=== PATIENT | female | born 1995 | race Caucasian/White ===

== ENCOUNTER 2020-02-29 00:01 | Inpatient (IN) ==
[2020-02-29] MEDS ORDERED: RINGER'S SOLUTION,LACTATED 1,000 ML IV ONE (00:12)
[2020-02-29] MEDS ORDERED: ONDANSETRON 4 MG TAB.RAPDIS PO PRN (00:12)
[2020-02-29 00:22] LABS: Hematocrit 36.5 % (37.0-47.0); Hemoglobin 12.1 gm/dL (12.5-16.0); Mean Cell Volume 89.7 fl (78-100); Mean Corpuscular Hemoglobin 29.7 pg (27-31); Mean Corpuscular Hgb Conc 33.2 g/dl (32-36); Mean Platelet Volume 10.8 fl (8-12.5); Neutrophil # 11.9 K/mm3 (1.3-6.0); Platelet Count 170 K/mm3 (150-450); Red Blood Count 4.07 M/mm3 (4.2-5.4); Red Cell Distribution Width 12.9 % (11.5-14.0); White Blood Count 15.8 K/mm3 (4.0-10.5)
[2020-02-29] MEDS ORDERED: PENICILLIN G POTASSIUM 5 MILLIONUNT in DEXTROSE 5 % IN WATER 100 ML IV ONE ×2 (00:30)
[2020-02-29 00:34] LABS: Albumin * 2.4 gm/dl (3.4-5.0); Anion Gap 13.6 mmol/L (6.8-13.8); BUN/Creatinine Ratio 12.7 (9.0-21.6); Bilirubin, Total 0.4 mg/dL (0.0-1.1); Ca. Corrected For Albumin 9.3 mg/dL (8.4-10.2); Calcium * 8.3 mg/dL (7.9-10.9); Carbon Dioxide 21.9 mmol/L (24-32.6); Potassium 3.5 mmol/L (3.4-4.6); Total Protein 6.5 gm/dL (6.2-8.2)
[2020-02-29] MEDS: MISOPROSTOL 100 MCG TABLET VG PRN (01:02)
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
[2020-02-29] MEDS: OXYTOCIN/DEXTROSE 5%-WATER 30 UNITS/500 ML BAG IV ONE (09:16)
[2020-02-29] MEDS: PENICILLIN G POTASSIUM 2.5 MILLIONUNT in DEXTROSE 5 % IN WATER 100 ML IV SCH ×4 (13:55→18:19)
--- NOTE | 2020-02-29 21:18 | PN ---
Progess Note - Interim Date: 02/29/20 Time: 21:17 Narrative: 02/29/20 21:17 Patient rating her contractions as mild. Denies headache, visual changes, or epigastric pain. Vital signs stable. Pitocin at 8 mu/min. FHT: 130 baseline, reassuring contractions q 2-3 min Cervix: 50/-2 Impression: Intrauterine at 37 weeks induction of labor for preeclampsia. GBS carrier-status post 4 doses of IV penicillin Plan: Continue present plan
[2020-03-01] MEDS: MISOPROSTOL 100 MCG TABLET VG PRN ×2 (00:04→04:09)
[2020-03-01] MEDS: OXYTOCIN/DEXTROSE 5%-WATER 30 UNITS/500 ML BAG IV ONE (10:44)
--- NOTE | 2020-03-01 12:51 | PN ---
Progess Note - Interim Date: 03/01/20 Time: 12:49 Narrative: 03/01/20 12:49 Patient still rating contractions as mild Vital signs stable. Pitocin at 4 mu/min. FHT: 130 baseline, reassuring contractions q 2-3 min Cervix: 1-2/50/-3, Pena catheter placed within the cervix and filled with 60 mL of sterile saline Impression: Intrauterine at 37-1/7 weeks induction of labor for preeclampsia Plan: Continue present plan. We will restart IV penicillin for GBS prophylaxis once patient becomes uncomfortable with contractions.
[2020-03-01] MEDS ORDERED: NALOXONE HCL 1 MG/1 ML SYRG IV PRN (15:34)
[2020-03-01] MEDS ORDERED: ONDANSETRON HCL/PF 2 MG/ML VIAL IV PRN (15:34)
[2020-03-01] MEDS ORDERED: fentaNYL CITRATE/PF 50 MCG/ML AMPUL IT SCH (15:45)
[2020-03-01] MEDS: PENICILLIN G POTASSIUM 2.5 MILLIONUNT in DEXTROSE 5 % IN WATER 100 ML IV SCH ×12 (16:10→20:12)
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
--- NOTE | 2020-03-01 17:14 | ANES ---
Post Anesthesia Discharge - Transfer of Care Transfer of Care handoff given to nurse: Yes - Anesthesia Post Op Note Anesthesia Post Op Note: Care transferred to OB RN
--- NOTE | 2020-03-01 17:14 | ANES ---
Post Anesthesia Assessment - Vital Signs Airway Patency: Normal - Mental Status Level Of Consciousness: Awake - Pain Level Pain Score: 2 - N/V Assessment Nausea/Vomiting Presence: None Dehydration:: No
--- NOTE | 2020-03-01 17:16 | ANES ---
Anesthesia Procedure Note Procedure Note: ANESTHESIA PROCEDURE NOTE Date of Procedure: 03/01/20 20 Time of procedure: 1700. Performed by: Shukri Galarza CRNA Street Openings Inspector: None. Preprocedure diagnosis: Active labor. Post procedure diagnosis: Same. Procedure: Insertion of labor epidural. 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 Findings: See below. Details of the procedure: The patient was placed in a sitting position. Back was prepped with DuraPrep. Patient was then draped in a sterile fashion. Lidocaine 1% was infiltrated to the skin and subcutaneous tissues at the level of the L3 4 interspace. The epidural space was identified using a 18-gauge Tuohy needle with [id number] technique. 20 mcg fentanyl was given intrathecally using a 27 ga. spinal needle. Epidural catheter was inserted without difficulty. Negative test dose was elicited using 5 mL of 1.5% preservative-free lidocaine plus epinephrine 1 200,000. The epidural catheter was then taped and secured in place. EBL: Minimal. Fluids: N/A. Specimen: N/A. Post procedure condition: The patient tolerated the procedure well. No complications were noted. Thank you for this consultation. Velasquez CRNA
[2020-03-01] MEDS: BUPIVACAINE HCL/0.9 % NACL/PF 250 ML EP PRN (17:44)
[2020-03-02] MEDS: PENICILLIN G POTASSIUM 2.5 MILLIONUNT in DEXTROSE 5 % IN WATER 100 ML IV SCH ×12 (00:02→21:03)
--- NOTE | 2020-03-02 09:08 | PN ---
Progess Note - Interim Date: 03/02/20 Time: 09:06 Narrative: 03/02/20 09:06 Patient comfortable with epidural Vital signs stable. Pitocin at 10 mu/min. FHT: 140 baseline, reassuring contractions q 2-3 min Cervix: 6/60/-3, AROM at 0840-clear DTR-2/4, no clonus Impression: Intrauterine at 37-2/7 weeks induction of labor for preeclampsia. GBS carrier on IV penicillin per GBS protocol Plan: Continue present plan
[2020-03-02] MEDS: BUPIVACAINE HCL/0.9 % NACL/PF 250 ML EP PRN (11:22)
[2020-03-02] MEDS ORDERED: LIDOCAINE HCL 50 ML VIAL IJ PRN (22:00)
[2020-03-02] MEDS ORDERED: LIDOCAINE HCL 50 ML VIAL ONE (22:00)
--- NOTE | 2020-03-02 22:51 | OR ---
Operative Report - Dictated Report Narrative: Spontaneous vaginal delivery of vigorously crying viable male at 2139 on 03/02/2020 with Apgars 9 and 10, weighing 3180 g in [place] position with right hand at face presentation, nuchal cord x1, and foot cord x1. Cord clamping delayed approximately 1 minute Placenta delivered complete, intact, with three vessel cord Estimated blood loss: 250 mL Anesthesia: Epidural Lacerations: Second-degree vaginal laceration (5 cm) repaired with 0 Vicryl and 3-0 Vicryl Rapide History for MU History for MU Definition: * The number of deliveries resulting in a live the patient experienced mynor or to current hospitalization * The previous delivery of live twins or any live multiple gestation is considered one live event. *If primagravida or nulliparous is documented select zero for the number of previous live births. Live Events: Live Events: 0
[2020-03-02] MEDS ORDERED: oxyCODONE HCL/ACETAMINOPHEN 1 TAB TABLET PO PRN (22:58)
[2020-03-02] MEDS ORDERED: HYDROCORTISONE 30 APPL TUBE TP PRN (22:58)
[2020-03-02] MEDS ORDERED: SENNOSIDES 8.6 MG TABLET PO PRN (22:58)
[2020-03-02] MEDS ORDERED: BISACODYL 10 MG SUPP.RECT RC PRN (22:58)
[2020-03-02] MEDS ORDERED: IBUPROFEN 800 MG TABLET PO PRN (22:58)
[2020-03-02] MEDS ORDERED: OXYTOCIN/DEXTROSE 5%-WATER 30 UNITS/500 ML BAG IV ONE (22:58)
[2020-03-02] MEDS ORDERED: BENZOCAINE/MENTHOL 81 SPRAY CAN TP PRN (22:58)
[2020-03-02] MEDS ORDERED: GLYCERIN/WITCH HAZEL LEAF 40 APPL BOX TP PRN (22:58)
--- NOTE | 2020-03-03 08:11 | PN ---
Subjective - Date and Time Seen Date: 03/03/20 Time: 08:09 Objective - Vitals Vitals: Last Vital Signs Temp 36.0 C 03/03/20 06:45 Pulse 97 03/03/20 06:45 Resp 18 03/03/20 06:45 BP 117/69 03/03/20 06:45 Pulse Ox 97 03/03/20 06:45 Patient denies complaints. Specifically denies headache, visual changes, or epigastric pain. Lochia wnl abdomen - soft, nontender Uterus -firm, at umbilicus - 1 DTR-3+'s, no clonus. No calf tenderness Impression: day #1 - s/p spontaneous vaginal delivery. Preeclampsia- resolving. Plan: Continue routine care. Continue monitoring closely for signs/symptoms of severe features. Cauti Physician Documentation - Urinary Catheter Management Urethral (Pena) Date of Insertion: 02/29/20 Time of Insertion: 12:00 Date of Removal: 03/02/20 Time of Removal: 21:28 Assessment/Plan - Problems/Diagnosis (1) Pre-eclampsia Problem: Acute Qualifiers: Trimester: third trimester Qualified Code(s): O14.93 - Unspecified pre- eclampsia, third trimester (2) Group B streptococcal carriage complicating Problem: Acute
[2020-03-03] MEDS: DOCUSATE SODIUM 100 MG CAPSULE PO SCH ×2 (09:42→20:34)
[2020-03-03] MEDS: IBUPROFEN 800 MG TABLET PO PRN ×2 (13:26→20:34)
[2020-03-04] MEDS: DOCUSATE SODIUM 100 MG CAPSULE PO SCH ×2 (06:51→08:38)
[2020-03-04] MEDS: IBUPROFEN 800 MG TABLET PO PRN (06:51)
[2020-03-04 07:24] VITALS: BP 122/77
--- NOTE | 2020-03-04 08:50 | PN ---
Subjective - Date and Time Seen Date: 03/04/20 Time: 08:49 Objective - Vitals Vitals: Last Vital Signs Temp 35.5 C L 03/04/20 07:14 Pulse 91 03/04/20 07:14 Resp 16 03/04/20 07:14 BP 122/77 03/04/20 07:14 Pulse Ox 97 03/04/20 07:14 Patient denies complaints. Breast-feeding well. Specifically denies headache, visual changes, or epigastric pain. Lochia wnl abdomen - soft, nontender Uterus -firm, at umbilicus - 2 DTR-2/4, no clonus. No calf tenderness Impression: day #2 - s/p spontaneous vaginal delivery. Preeclampsia without severe features-resolved. Plan: Routine discharge instructions. Preeclampsia precautions. Follow-up in the office in 1 week for blood pressure check. Cauti Physician Documentation - Urinary Catheter Management Urethral (Pena) Date of Insertion: 02/29/20 Time of Insertion: 12:00 Date of Removal: 03/02/20 Time of Removal: 21:28 Assessment/Plan - Problems/Diagnosis (1) Pre-eclampsia Problem: Acute Qualifiers: Trimester: third trimester Qualified Code(s): O14.93 - Unspecified pre- eclampsia, third trimester (2) Group B streptococcal carriage complicating Problem: Acute
== END 2020-03-04 12:00 | disposition home or self-care (01) | DRG 806 ==
LOC: OB 00:01
PROVIDERS: ADMIT Obstetrics & Gynecology; ATTEND Obstetrics & Gynecology
CPT/HCPCS: 36415; 59025; 80053; 85025; 88307; 88888